=== PATIENT | female | born 1940 | race Caucasian/White ===

== ENCOUNTER 2019-01-10 12:14 | Outpatient (CLI) | payer MEDICARE ==
[~2019-01-10 12:14] MED LIST: REGADENOSON 0.4 MG/5 ML SYRINGE ONE
== END 2019-01-10 23:59 | disposition home or self-care (01) ==
LOC: CFH 12:14
PROVIDERS: ATTEND Family Medicine
DX: R07.9 Chest pain, unspecified (principal)
CPT/HCPCS: 78452; 93017; A9502; J2785